=== PATIENT | female | born 1960 | race Caucasian/White ===

== ENCOUNTER 2018-10-30 10:54 | Outpatient (CLI) | payer OTHER ==
[~2018-10-30] VITALS: Ht 170.2 cm; Wt 155.7 kg
[2018-10-30 10:40] VITALS: BP 169/104
[~2018-10-30 10:54] MED LIST: AMLO10TA8 PO; AMLO1CAP10 PO; ASPI-496 PO; ATOR10TA9 PO; BUME2TAB PO; CALC-141 PO; CARV-39 PO; CHOL20002 PO; ESTROGEN CREAM TP; FENO135C4 PO; FISH OIL PO; FLUC150T2 PO; GLIM4TAB2 PO; HYDR-3343 PO; INSU100I28 SQ-INSULIN; INSU200I SQ-INSULIN; ISOS10TA2 PO; METO10TA6 PO; MIRA50TA PO; MULT-658 PO; VITAMIN D2 PO
[2018-10-30] MEDS ORDERED: FERRIC CARBOXYMALTOSE 750 MG in SODIUM CHLORIDE 0.9% 250 ML IV ONE (11:30)
[2018-10-30 12:10] VITALS: BP 168/74
== END 2018-10-30 23:59 | disposition home or self-care (01) ==
LOC: INFUSION 10:54
PROVIDERS: ATTEND Internal Medicine Nephrology
DX: D50.9 Iron deficiency anemia, unspecified (principal); I12.9 Hypertensive chronic kidney disease with stage 1 through stage 4 chronic kidney disease, or unspecified chronic kidney disease; E11.22 Type 2 diabetes mellitus with diabetic chronic kidney disease; N18.3 Chronic kidney disease, stage 3 (moderate); D63.1 Anemia in chronic kidney disease; E11.65 Type 2 diabetes mellitus with hyperglycemia; E78.00 Pure hypercholesterolemia, unspecified
CPT/HCPCS: 96365; J1439; J7050

== ENCOUNTER 2018-11-06 08:58 | Outpatient (CLI) | payer OTHER ==
[~2018-11-06] VITALS: Ht 170.2 cm; Wt 153.0 kg
[2018-11-06 12:05] VITALS: BP 153/65
== END 2018-11-06 23:59 | disposition home or self-care (01) ==
LOC: INFUSION 08:58
PROVIDERS: ATTEND Internal Medicine Nephrology
DX: D50.9 Iron deficiency anemia, unspecified (principal); I12.9 Hypertensive chronic kidney disease with stage 1 through stage 4 chronic kidney disease, or unspecified chronic kidney disease; E11.22 Type 2 diabetes mellitus with diabetic chronic kidney disease; N18.3 Chronic kidney disease, stage 3 (moderate); D63.1 Anemia in chronic kidney disease; E11.65 Type 2 diabetes mellitus with hyperglycemia; E78.00 Pure hypercholesterolemia, unspecified
CPT/HCPCS: 96365; J1439; J7050